=== PATIENT | male | born 1945 | race Caucasian/White ===

== ENCOUNTER 2024-03-25 20:34 | Inpatient (IN) | payer MEDICARE, OTHER ==
[~2024-03-25] VITALS: Ht 177.8 cm; Wt 77.1 kg
[2024-03-25 21:54] LABS: BASOPHILS # (AUTO) 0.1 K/uL (0.0-0.2); BASOPHILS % (AUTO) 1.1 % (0.0-2.0); EOSINOPHILS # (AUTO) 0.4 K/uL (0.0-0.7); EOSINOPHILS % (AUTO) 3.8 % (0.0-6.0); HEMATOCRIT 33 % (39-51); HEMOGLOBIN 11.1 g/dL (13.5-17.5); LYMPHOCYTES # (AUTO) 2.8 K/uL (0.8-4.8); LYMPHOCYTES % (AUTO) 30.1 % (20.0-44.0); MEAN CORPUSCULAR HEMOGLOBIN 31 PG (26.0-33.0); MEAN CORPUSCULAR HGB CONC 34 g/dl (31.0-36.0); MEAN CORPUSCULAR VOLUME 91 fL (80-96); MONOCYTES # (AUTO) 0.6 K/uL (0.1-1.30); MONOCYTES % (AUTO) 6.4 % (2.0-12.0); NEUTROPHILS # (AUTO) 5.5 K/uL (1.8-8.9); NEUTROPHILS % (AUTO) 58.6 % (43.0-81.0); RED CELL DISTRIBUTION WIDTH 15.4 % (11.5-15.0); WHITE BLOOD COUNT (AUTO) 9.3 K/uL (4.3-11.0)
[2024-03-25 22:03] LABS: CARBON DIOXIDE 31 mmol/L (21-32); CHLORIDE 105 mmol/L (98-107); CREATININE 1.4 mg/dL (0.6-1.3); GLUCOSE 112 mg/dL (74-106); POTASSIUM 3.6 mmol/L (3.5-5.1); SODIUM SERUM 141 mmol/L (136-145); UREA NITROGEN, BLOOD 28 mg/dL (7-18)
[2024-03-25 22:14] LABS: PLATELET COUNT (AUTO) 241 K/uL (150-450)
[2024-03-25 22:17] LABS: ALANINE AMINOTRANSFERASE 25 U/L (12-78); ALBUMIN 2.9 g/dL (3.4-5.0); ALCOHOL, BLOOD < 3 mg/dL (0-10); ALKALINE PHOSPHATASE 66 U/L (46-116); ASPARTATE AMINOTRANSFERASE 21 U/L (15-37); BILIRUBIN,DIRECT 0.1 mg/dL (0.0-0.2); BILIRUBIN,TOTAL 0.2 mg/dL (0.2-1.0); TOTAL PROTEIN, SERUM 6.1 g/dL (6.4-8.2)
[2024-03-25 22:21] LABS: SALICYLATE 0.8 mg/dL (2.8-20.0)
[2024-03-25 22:22] LABS: ACETAMINOPHEN <10 ug/ml (10-30)
[2024-03-25 22:45] LABS: APPEARANCE,URINE CLEAR (CLEAR); BILIRUBIN,URINE NEGATIVE (NEGATIVE); BLOOD, URINE NEGATIVE Ery/uL (NEGATIVE); COLOR,URINE YELLOW (YELLOW); KETONES,URINE NEGATIVE (NEGATIVE); LEUKOCYTE ESTERASE ,URINE NEGATIVE (NEGATIVE); NITRITE, URINE NEGATIVE (NEGATIVE); PROTEIN,URINE NEGATIVE (NEGATIVE); UGLUCOSE NEGATIVE (NEGATIVE)
[2024-03-25 22:56] LABS: AMPHETAMINE, URINE NEGATIVE (NEGATIVE); BARBITURATE, URINE NEGATIVE (NEGATIVE); BENZODIAZEPINE, URINE NEGATIVE (NEGATIVE); CANNABINOID, URINE NEGATIVE (NEGATIVE); COCCAINE, URINE NEGATIVE (NEGATIVE); OPIATE, URINE NEGATIVE (NEGATIVE); PHENCYCLIDINE SCREEN,URINE NEGATIVE (NEGATIVE)
[2024-03-25 23:04] LABS: ADD URINE CULTURE NO; BACTERIA,URINE Few /HPF (None Seen); RBC,URINE 0-2 /HPF (0-2); SQUAMOUS EPITHELIAL CELL,UR Few /HPF (None Seen); WBC,URINE 0-2 /HPF (0-3)
[2024-03-26] MEDS ORDERED: VALP250S22 PO (08:15)
[2024-03-26] MEDS ORDERED: ATOR80TA PO (08:15)
[2024-03-26] MEDS ORDERED: NAPR-1009 PO (08:15)
[2024-03-26] MEDS ORDERED: FURO40TA5 PO (08:15)
[2024-03-26] MEDS ORDERED: BREO ELLIPTA IH (08:15)
[2024-03-26] MEDS ORDERED: ASPI-1420 PO (08:15)
[2024-03-26] MEDS ORDERED: TAMS-12 PO (08:15)
[2024-03-26] MEDS ORDERED: QUET25TA PO ×2 (08:15)
[2024-03-26] MEDS ORDERED: OMEP20CA15 PO (08:15)
[2024-03-26] MEDS ORDERED: BISA5TAB10 PO (08:15)
[2024-03-26] MEDS ORDERED: FINA5TAB11 PO (08:15)
[2024-03-26] MEDS ORDERED: CHLO1CAP32 PO (08:15)
[2024-03-26] MEDS ORDERED: ISOS30TA86 PO (08:15)
[2024-03-26] MEDS ORDERED: ERGO500040 PO (08:15)
[2024-03-26] MEDS ORDERED: MECL-159 PO (08:15)
[2024-03-26] MEDS ORDERED: LINA72CA PO (08:15)
[2024-03-26] MEDS ORDERED: MEMA5TAB42 PO (08:15)
[2024-03-26] MEDS ORDERED: RANO500T6 PO (08:15)
[2024-03-26] MEDS ORDERED: DOCU100C36 PO (08:15)
[2024-03-26 10:35] VITALS: BP 164/84; TEMP 98.6; O2SAT 99
[2024-03-26] MEDS ORDERED: MAG HYDROX/AL HYDROX/SIMETH 30 ML UDC PO PRN (11:00)
[2024-03-26] MEDS ORDERED: MAGNESIUM HYDROXIDE 30 ML UDC PO PRN (11:00)
[2024-03-26] MEDS: BLOOD SUGAR DIAGNOSTIC 1 EACH STRIP IN ONE (11:01)
[2024-03-26] MEDS ORDERED: BISACODYL (5 MG) 5 MG TABLET.DR PO PRN (15:30)
[2024-03-26] MEDS ORDERED: MECLIZINE HCL 25 MG TABLET PO PRN (15:30)
[2024-03-26] MEDS ORDERED: CLIDINIUM BR/CHLORDIAZEPOXIDE 1 CAP PO PRN (15:30)
[2024-03-26 16:00] VITALS: BP 161/96; TEMP 98.6; O2SAT 99
[2024-03-26] MEDS: RANOLAZINE 500 MG TAB.ER.12H PO SCH (16:42)
[2024-03-26] MEDS: OXCARBAZEPINE 150 MG TABLET PO SCH (16:42)
[2024-03-26] MEDS: MEMANTINE HCL 5 MG TABLET PO SCH (16:42)
[2024-03-26] MEDS: VALPROIC ACID 250 MG/5 ML UDC PO SCH (16:46)
[2024-03-26] MEDS: ATORVASTATIN 40 MG TABLET PO SCH (21:15)
[2024-03-26] MEDS: DOCUSATE SODIUM 100 MG CAPSULE PO SCH (21:15)
[2024-03-26] MEDS: TAMSULOSIN 0.4 MG CAP.SR.24H PO SCH (21:15)
[2024-03-26 22:17] VITALS: BP 150/91; TEMP 98.4; O2SAT 98
[2024-03-27] MEDS ORDERED: Medication Not On Formulary EA (Linaclotide (Linzess) 72 MCG) PO SCH (07:30)
[2024-03-27 08:00] VITALS: BP 147/73; TEMP 98.4; O2SAT 96
[2024-03-27 08:27] LABS: CREATININE 1.2 mg/dL (0.6-1.3)
[2024-03-27 08:30] LABS: ALBUMIN 3.4 g/dL (3.4-5.0); BILIRUBIN,TOTAL 0.4 mg/dL (0.2-1.0); CALCIUM, SERUM 9.1 mg/dL (8.5-10.1); CREATININE 1.2 mg/dL (0.6-1.3); POTASSIUM 3.9 mmol/L (3.5-5.1); TOTAL PROTEIN, SERUM 6.8 g/dL (6.4-8.2)
[2024-03-27 08:57] LABS: THYROID STIMULATING HORMONE 1.06 uIU/mL (0.358-3.74)
[2024-03-27] MEDS: FLUTICASONE/VILANTEROL 1 EACH BLST.W.DEV IH SCH (08:58)
[2024-03-27] MEDS: ISOSORBIDE MONONITRATE (30MG) 30 MG TAB.SR.24H PO SCH (09:03)
[2024-03-27] MEDS: FINASTERIDE (5 MG) 5 MG TABLET PO SCH (09:03)
[2024-03-27] MEDS: PANTOPRAZOLE 40 MG TABLET.DR PO SCH (09:03)
[2024-03-27] MEDS: ASPIRIN EC 81 MG TABLET.DR PO SCH (09:03)
[2024-03-27 15:09] VITALS: BP 133/82; TEMP 98.1; O2SAT 95
[2024-03-27 20:39] VITALS: BP 152/98; TEMP 98.1; O2SAT 96
[2024-03-27] MEDS: ZOLPIDEM TARTRATE 5 MG TABLET PO PRN (22:40)
[2024-03-28 08:00] VITALS: BP 121/70; TEMP 97.9; O2SAT 97
[2024-03-28] MEDS: OXCARBAZEPINE 150 MG TABLET PO SCH (15:05)
[2024-03-28 16:00] VITALS: BP 139/72; TEMP 97.7; O2SAT 97
[2024-03-28] MEDS: FUROSEMIDE 40 MG TABLET PO ONE (19:48)
[2024-03-28 22:23] VITALS: BP 153/68; TEMP 98; O2SAT 99
[2024-03-29 08:00] VITALS: BP 157/84; TEMP 98.1; O2SAT 98
[2024-03-29 16:00] VITALS: BP 132/72; TEMP 98.7; O2SAT 98
[2024-03-29] MEDS: QUETIAPINE FUMARATE 25 MG TABLET PO PRN (21:58)
[2024-03-29 22:51] VITALS: BP 150/80; TEMP 98.4; O2SAT 97
[2024-03-30 08:00] VITALS: BP 124/70; TEMP 98.6; O2SAT 99
[2024-03-30] MEDS: OLANZAPINE 10 MG VIAL IM STA (11:24)
[2024-03-30 16:00] VITALS: BP 145/100; TEMP 97.7; O2SAT 100
[2024-03-30 20:00] VITALS: BP 150/90; TEMP 97.7; O2SAT 97
[2024-03-30] MEDS: QUETIAPINE FUMARATE 25 MG TABLET PO SCH (21:22)
[2024-03-31 08:00] VITALS: BP 168/90; TEMP 98.8; O2SAT 99
[2024-03-31 16:00] VITALS: BP 144/93; TEMP 98; O2SAT 97
[2024-03-31 20:27] VITALS: BP 154/82; TEMP 98.4; O2SAT 99
[2024-04-01] MEDS: ACETAMINOPHEN 325 MG TABLET PO PRN (07:48)
[2024-04-01 08:00] VITALS: BP 120/57; TEMP 101.3; O2SAT 84
[2024-04-01 09:25] VITALS: TEMP 99.4
[2024-04-01 09:32] VITALS: BP 120/57
[2024-04-01] MEDS ORDERED: ACET-868 PO (10:57)
[2024-04-01] MEDS ORDERED: PANT40TA2 PO (10:57)
[2024-04-01] MEDS ORDERED: MAG30ORA PO (10:57)
[2024-04-01] MEDS ORDERED: FLUT1BLS IH (10:57)
[2024-04-01] MEDS ORDERED: MAGN400O6 PO (10:57)
== END 2024-04-01 10:20 | disposition short-term general hospital (02) | DRG 885 ==
LOC: ER 20:44 → GPS 03-26 09:07
PROVIDERS: ADMIT Psychiatry & Neurology Psychiatry; ATTEND Student in an Organized Health Care Education/Training Program
DX: F39 Unspecified mood [affective] disorder (principal); N17.0 Acute kidney failure with tubular necrosis; E44.0 Moderate protein-calorie malnutrition; G93.49 Other encephalopathy; F03.92 Unspecified dementia, unspecified severity, with psychotic disturbance; F03.918 Unspecified dementia, unspecified severity, with other behavioral disturbance; F03.93 Unspecified dementia, unspecified severity, with mood disturbance; I13.0 Hypertensive heart and chronic kidney disease with heart failure and stage 1 through stage 4 chronic kidney disease, or unspecified chronic kidney disease; F29 Unspecified psychosis not due to a substance or known physiological condition; D64.9 Anemia, unspecified; E78.5 Hyperlipidemia, unspecified; I50.9 Heart failure, unspecified; J44.9 Chronic obstructive pulmonary disease, unspecified; K21.9 Gastro-esophageal reflux disease without esophagitis; Z86.73 Personal history of transient ischemic attack (TIA), and cerebral infarction without residual deficits; F17.210 Nicotine dependence, cigarettes, uncomplicated; M19.90 Unspecified osteoarthritis, unspecified site; N40.0 Benign prostatic hyperplasia without lower urinary tract symptoms; Z20.822 Contact with and (suspected) exposure to COVID-19; F03.90 Unspecified dementia, unspecified severity, without behavioral disturbance, psychotic disturbance, mood disturbance, and anxiety; Z68.24 Body mass index [BMI] 24.0-24.9, adult; N18.9 Chronic kidney disease, unspecified
CPT/HCPCS: 36415; 71045-TC; 80048-TC; 80053-TC; 80061-TC; 80076-TC; 81001; 82565-TC; 84443-TC; 85025-TC; 93970-TC; G0480; J3490

== ENCOUNTER 2024-04-01 10:11 | Inpatient (IN) | payer MEDICARE, OTHER ==
[~2024-04-01] VITALS: Ht 177.8 cm; Wt 75.4 kg
[~2024-04-01 10:11] MED LIST: ASPI-1420 PO; ATOR80TA PO; BISA5TAB10 PO; BREO ELLIPTA IH; CHLO1CAP32 PO; DOCU100C36 PO; ERGO500040 PO; FINA5TAB11 PO; FURO40TA5 PO; ISOS30TA86 PO; LINA72CA PO; MECL-159 PO; MEMA5TAB42 PO; NAPR-1009 PO; OMEP20CA15 PO; QUET25TA PO; RANO500T6 PO; TAMS-12 PO; VALP250S22 PO
[2024-04-01 10:30] VITALS: BP 140/67; TEMP 98; O2SAT 100
[2024-04-01] MEDS ORDERED: ACET-868 PO (10:57)
[2024-04-01] MEDS ORDERED: MAGN400O6 PO (10:57)
[2024-04-01] MEDS ORDERED: MAG30ORA PO (10:57)
[2024-04-01] MEDS ORDERED: FLUT1BLS IH (10:57)
[2024-04-01] MEDS ORDERED: PANT40TA2 PO (10:57)
[2024-04-01] MEDS ORDERED: ONDANSETRON HCL/PF 4 MG/2 ML VIAL IVP PRN (11:30)
[2024-04-01] MEDS: IV NS 0.9% 1,000 ML IV PRN (12:48)
[2024-04-01 13:00] VITALS: BP 138/78; TEMP 99; O2SAT 100
[2024-04-01] MEDS ORDERED: CLIDINIUM BR/CHLORDIAZEPOXIDE 1 CAP PO PRN (13:00)
[2024-04-01] MEDS: ACETAMINOPHEN 325 MG TABLET PO PRN (14:34)
[2024-04-01 14:47] LABS: CALCIUM, SERUM 8.1 mg/dL (8.5-10.1); CREATININE 1.2 mg/dL (0.6-1.3); POTASSIUM 3.4 mmol/L (3.5-5.1)
[2024-04-01 14:58] LABS: BASOPHILS % (AUTO) 0.1 % (0.0-2.0); HEMATOCRIT 33 % (39-51); HEMOGLOBIN 10.9 g/dL (13.5-17.5); LYMPHOCYTES # (AUTO) 1.4 K/uL (0.8-4.8); LYMPHOCYTES % (AUTO) 6.4 % (20.0-44.0); MEAN CORPUSCULAR HEMOGLOBIN 30 PG (26.0-33.0); MEAN CORPUSCULAR HGB CONC 33 g/dl (31.0-36.0); MEAN CORPUSCULAR VOLUME 90 fL (80-96); MONOCYTES # (AUTO) 1.6 K/uL (0.1-1.30); MONOCYTES % (AUTO) 7.5 % (2.0-12.0); NEUTROPHILS # (AUTO) 18.6 K/uL (1.8-8.9); PLATELET COUNT (AUTO) 289 K/uL (150-450); RED BLOOD CELL COUNT(AUTO) 3.66 MIL/uL (4.5-6.0); RED CELL DISTRIBUTION WIDTH 15.8 % (11.5-15.0); WHITE BLOOD COUNT (AUTO) 21.6 K/uL (4.3-11.0)
[2024-04-01 15:59] LABS: BAND % (MANUAL) 3 % (0.0-5.0); EOSINOPHILS % (MANUAL) 0 % (0-4); MONOCYTES % (MANUAL) 4 % (0-11.0); NEUTROPHILS % (MANUAL) 83 (42-76)
[2024-04-01 16:00] LABS: BASOPHILS % (MANUAL) 0 % (0.0-2.0)
[2024-04-01 16:01] LABS: LYMPHOCYTES % (MANUAL) 10 % (16-48); PLATELET ESTIMATE ADEQUATE
[2024-04-01 16:21] LABS: APPEARANCE,URINE CLEAR (CLEAR); BILIRUBIN,URINE NEGATIVE (NEGATIVE); BLOOD, URINE NEGATIVE Ery/uL (NEGATIVE); COLOR,URINE YELLOW (YELLOW); KETONES,URINE TRACE mg/dL (NEGATIVE); LEUKOCYTE ESTERASE ,URINE NEGATIVE (NEGATIVE); NITRITE, URINE NEGATIVE (NEGATIVE); PH,URINE 6.5 (5.0-8.0); PROTEIN,URINE 1+ mg/dl (NEGATIVE); UGLUCOSE NEGATIVE (NEGATIVE)
[2024-04-01 17:00] VITALS: BP 100/62; TEMP 98.9; O2SAT 100
[2024-04-01 17:12] LABS: ADD URINE CULTURE NO; BACTERIA,URINE Rare /HPF (None Seen); RBC,URINE 0-2 /HPF (0-2); SQUAMOUS EPITHELIAL CELL,UR Rare /HPF (None Seen); WBC,URINE 0-2 /HPF (0-3)
[2024-04-01] MEDS: CEFEPIME 2 GM in IV D5W 100 ML IV SCH (17:36)
[2024-04-01] MEDS: RANOLAZINE 500 MG TAB.ER.12H PO SCH (17:36)
[2024-04-01] MEDS: ENOXAPARIN SODIUM 40 MG/0.4 ML DISP.SYRIN SQ SCH (17:37)
[2024-04-01] MEDS ORDERED: POTASSIUM CHLORIDE 20 MEQ TAB.PRT.SR PO SCH (18:30)
[2024-04-01] MEDS: POTASSIUM CL. PREMIX PERIPHER. 50 ML IV SCH (18:54)
[2024-04-01 20:01] VITALS: O2SAT 99
[2024-04-01] MEDS: ALBUTEROL FS 2.5 MG/3 ML VIAL.NEB NEB SCH (20:01)
[2024-04-01 20:16] VITALS: O2SAT 97
[2024-04-01 21:00] VITALS: BP 141/85; TEMP 101.7; O2SAT 97
[2024-04-01] MEDS: DOCUSATE SODIUM 100 MG CAPSULE PO SCH (21:10)
[2024-04-01] MEDS: TAMSULOSIN 0.4 MG CAP.SR.24H PO SCH (21:10)
[2024-04-01] MEDS: ATORVASTATIN 40 MG TABLET PO SCH (21:10)
[2024-04-02] VITALS (14 sets, daily range): BP systolic 132–158; BP diastolic 62–92; TEMP 97.5–99.9; O2SAT 92–100
[2024-04-02 07:18] LABS: BASOPHILS # (AUTO) 0.1 K/uL (0.0-0.2); BASOPHILS % (AUTO) 0.2 % (0.0-2.0); EOSINOPHILS % (AUTO) 0.1 % (0.0-6.0); HEMATOCRIT 38 % (39-51); HEMOGLOBIN 12.1 g/dL (13.5-17.5); LYMPHOCYTES # (AUTO) 1.6 K/uL (0.8-4.8); LYMPHOCYTES % (AUTO) 6.2 % (20.0-44.0); MEAN CORPUSCULAR HEMOGLOBIN 30 PG (26.0-33.0); MEAN CORPUSCULAR HGB CONC 32 g/dl (31.0-36.0); MEAN CORPUSCULAR VOLUME 93 fL (80-96); MONOCYTES # (AUTO) 1.7 K/uL (0.1-1.30); MONOCYTES % (AUTO) 6.5 % (2.0-12.0); NEUTROPHILS # (AUTO) 22.3 K/uL (1.8-8.9); PLATELET COUNT (AUTO) 267 K/uL (150-450); RED BLOOD CELL COUNT(AUTO) 4.05 MIL/uL (4.5-6.0); RED CELL DISTRIBUTION WIDTH 16.3 % (11.5-15.0); WHITE BLOOD COUNT (AUTO) 25.6 K/uL (4.3-11.0)
[2024-04-02] MEDS ORDERED: Medication Not On Formulary EA (Linaclotide (Linzess) 72 MCG) PO SCH (07:30)
[2024-04-02 07:59] LABS: CALCIUM, SERUM 8.2 mg/dL (8.5-10.1); CREATININE 1.2 mg/dL (0.6-1.3); PHOSPHORUS 2.3 mg/dL (2.5-4.9); POTASSIUM 3.9 mmol/L (3.5-5.1)
[2024-04-02] MEDS: BUDESONIDE RESPULE INH 0.5 MG/2 ML AMPUL.NEB NEB SCH (08:32)
[2024-04-02] MEDS: ISOSORBIDE MONONITRATE (30MG) 30 MG TAB.SR.24H PO SCH (09:00)
[2024-04-02] MEDS ORDERED: MAG HYDROX/AL HYDROX/SIMETH 30 ML UDC PO PRN (09:00)
[2024-04-02] MEDS: PANTOPRAZOLE 40 MG TABLET.DR PO SCH (09:00)
[2024-04-02] MEDS: ASPIRIN EC 81 MG TABLET.DR PO SCH (09:00)
[2024-04-02] MEDS: FINASTERIDE (5 MG) 5 MG TABLET PO SCH (09:00)
[2024-04-02] MEDS: OLANZAPINE 10 MG VIAL IM ONE (10:00)
[2024-04-02] MEDS: K PHOS NEUTRAL 250 MG TABLET PO ONE (16:00)
[2024-04-02] MEDS: VANCOMYCIN 1 GM in IV D5W 250ml IV ONE ×2 (16:24→17:00)
[2024-04-02] MEDS ORDERED: QUETIAPINE FUMARATE 25 MG TABLET PO PRN (17:00)
[2024-04-03] VITALS (12 sets, daily range): BP systolic 126–158; BP diastolic 55–85; TEMP 97.7–100.2; O2SAT 94–99
[2024-04-03] MEDS: VANCOMYCIN 750 MG in IV D5W 250 ML IV SCH (05:33)
[2024-04-03 07:56] LABS: BASOPHILS % (AUTO) 0.1 % (0.0-2.0); EOSINOPHILS # (AUTO) 0.1 K/uL (0.0-0.7); EOSINOPHILS % (AUTO) 0.3 % (0.0-6.0); HEMATOCRIT 32 % (39-51); HEMOGLOBIN 10.7 g/dL (13.5-17.5); LYMPHOCYTES # (AUTO) 1.3 K/uL (0.8-4.8); MEAN CORPUSCULAR HEMOGLOBIN 30 PG (26.0-33.0); MEAN CORPUSCULAR HGB CONC 33 g/dl (31.0-36.0); MEAN CORPUSCULAR VOLUME 89 fL (80-96); MONOCYTES # (AUTO) 1.4 K/uL (0.1-1.30); MONOCYTES % (AUTO) 6.7 % (2.0-12.0); NEUTROPHILS # (AUTO) 18.6 K/uL (1.8-8.9); NEUTROPHILS % (AUTO) 86.9 % (43.0-81.0); PLATELET COUNT (AUTO) 290 K/uL (150-450); RED BLOOD CELL COUNT(AUTO) 3.61 MIL/uL (4.5-6.0); RED CELL DISTRIBUTION WIDTH 15.8 % (11.5-15.0); WHITE BLOOD COUNT (AUTO) 21.4 K/uL (4.3-11.0)
[2024-04-03 08:26] LABS: CALCIUM, SERUM 7.9 mg/dL (8.5-10.1); MAGNESIUM 1.9 mg/dL (1.8-2.4); POTASSIUM 3.1 mmol/L (3.5-5.1)
[2024-04-03] MEDS: POTASSIUM CL. PREMIX PERIPHER. 50 ML IV SCH (09:16)
[2024-04-03 13:34] LABS: HIV-1 p24 ANTIGEN NON REACTIVE (NONREACTIVE); HIV-1/2 ANTIBODY NON REACTIVE (NONREACTIVE)
[2024-04-03] MEDS: K PHOS NEUTRAL 250 MG TABLET PO ONE (15:50)
[2024-04-03] MEDS: ACETAMINOPHEN 650 MG/SUPP.RECT RC PRN (21:07)
[2024-04-03] MEDS: ADENOSINE 6 MG/2 ML VIAL IVP ONE (21:08)
[2024-04-03] MEDS: Magnesium 1GM/D5W 100ML PREMIX 100 ML IV SCH (21:16)
[2024-04-03] MEDS ORDERED: AMIODARONE 150 MG/3 ML VIAL IV ONE ×2 (21:30→21:39)
[2024-04-03] MEDS: AMIODARONE 150 MG in IV D5W 100 ML IV ONE (21:56)
[2024-04-03 22:02] LABS: CREATININE 1.2 mg/dL (0.6-1.3); MAGNESIUM 2.3 mg/dL (1.8-2.4); POTASSIUM 3.6 mmol/L (3.5-5.1)
[2024-04-04] VITALS (11 sets, daily range): BP systolic 120–156; BP diastolic 68–78; TEMP 97.5–99.1; O2SAT 92–100
[2024-04-04] MEDS: AMIODARONE 450 MG in IV D5W 241 ML IV PRN (01:46)
[2024-04-04 05:21] LABS: BASOPHILS % (AUTO) 0.2 % (0.0-2.0); EOSINOPHILS # (AUTO) 0.1 K/uL (0.0-0.7); EOSINOPHILS % (AUTO) 0.5 % (0.0-6.0); HEMATOCRIT 34 % (39-51); HEMOGLOBIN 11.4 g/dL (13.5-17.5); LYMPHOCYTES # (AUTO) 2.1 K/uL (0.8-4.8); LYMPHOCYTES % (AUTO) 11.4 % (20.0-44.0); MEAN CORPUSCULAR HEMOGLOBIN 30 PG (26.0-33.0); MEAN CORPUSCULAR HGB CONC 33 g/dl (31.0-36.0); MEAN CORPUSCULAR VOLUME 90 fL (80-96); MONOCYTES # (AUTO) 1.5 K/uL (0.1-1.30); MONOCYTES % (AUTO) 8.1 % (2.0-12.0); NEUTROPHILS # (AUTO) 14.8 K/uL (1.8-8.9); NEUTROPHILS % (AUTO) 79.8 % (43.0-81.0); PLATELET COUNT (AUTO) 330 K/uL (150-450); RED BLOOD CELL COUNT(AUTO) 3.79 MIL/uL (4.5-6.0); RED CELL DISTRIBUTION WIDTH 15.7 % (11.5-15.0); WHITE BLOOD COUNT (AUTO) 18.5 K/uL (4.3-11.0)
[2024-04-04 05:50] LABS: CALCIUM, SERUM 8.2 mg/dL (8.5-10.1); CREATININE 1.1 mg/dL (0.6-1.3); MAGNESIUM 2.3 mg/dL (1.8-2.4); POTASSIUM 3.4 mmol/L (3.5-5.1)
[2024-04-04 06:26] LABS: LYMPHOCYTES % (MANUAL) 14 % (16-48); MONOCYTES % (MANUAL) 9 % (0-11.0); NEUTROPHILS % (MANUAL) 77 (42-76); PLATELET ESTIMATE ADEQUATE
[2024-04-04] MEDS ORDERED: Z GUARD REMEDY 4 OZ OINT TP PRN (08:30)
[2024-04-04] MEDS ORDERED: IPRATROPIUM NEB FS 0.5 MG/2.5 ML AMPUL.NEB NEB PRN (09:30)
[2024-04-04] MEDS: Z GUARD REMEDY 4 OZ OINT TP SCH (09:46)
[2024-04-04] MEDS: POTASSIUM CL. PREMIX PERIPHER. 50 ML IV SCH (09:48)
[2024-04-04] MEDS: APIXABAN 5 MG TABLET PO SCH (11:11)
[2024-04-04] MEDS: POTASSIUM CHLORIDE 20 MEQ TAB.PRT.SR PO SCH (11:11)
[2024-04-05] VITALS (10 sets, daily range): BP systolic 106–151; BP diastolic 60–91; TEMP 97.6–98.6; O2SAT 93–99
[2024-04-05 08:36] LABS: CALCIUM, SERUM 8.3 mg/dL (8.5-10.1); CREATININE 1.1 mg/dL (0.6-1.3); POTASSIUM 3.5 mmol/L (3.5-5.1)
[2024-04-05] MEDS: AMIODARONE HCL 200 MG TABLET PO SCH (16:29)
[2024-04-05] MEDS: MEROPENEM 1 G in IV NS 0.9% 100 ML IV SCH (20:52)
[2024-04-06] VITALS (7 sets, daily range): BP systolic 127–138; BP diastolic 73–93; TEMP 97.9–99; O2SAT 94–99
[2024-04-06 07:45] LABS: BASOPHILS # (AUTO) 0.1 K/uL (0.0-0.2); BASOPHILS % (AUTO) 0.4 % (0.0-2.0); EOSINOPHILS # (AUTO) 0.2 K/uL (0.0-0.7); HEMATOCRIT 30 % (39-51); HEMOGLOBIN 10.1 g/dL (13.5-17.5); LYMPHOCYTES # (AUTO) 1.3 K/uL (0.8-4.8); LYMPHOCYTES % (AUTO) 8.4 % (20.0-44.0); MEAN CORPUSCULAR HEMOGLOBIN 30 PG (26.0-33.0); MEAN CORPUSCULAR HGB CONC 34 g/dl (31.0-36.0); MEAN CORPUSCULAR VOLUME 88 fL (80-96); MONOCYTES # (AUTO) 1.6 K/uL (0.1-1.30); MONOCYTES % (AUTO) 10.8 % (2.0-12.0); NEUTROPHILS # (AUTO) 11.9 K/uL (1.8-8.9); NEUTROPHILS % (AUTO) 79.4 % (43.0-81.0); PLATELET COUNT (AUTO) 378 K/uL (150-450); RED BLOOD CELL COUNT(AUTO) 3.41 MIL/uL (4.5-6.0); RED CELL DISTRIBUTION WIDTH 15.9 % (11.5-15.0)
[2024-04-06 07:55] LABS: CALCIUM, SERUM 8.4 mg/dL (8.5-10.1); CREATININE 0.9 mg/dL (0.6-1.3); POTASSIUM 3.3 mmol/L (3.5-5.1)
[2024-04-06] MEDS: POTASSIUM CHLORIDE 20 MEQ TAB.PRT.SR PO SCH (11:16)
[2024-04-06 11:17] LABS: EOSINOPHILS % (MANUAL) 2 % (0-4); LYMPHOCYTES % (MANUAL) 9 % (16-48); MONOCYTES % (MANUAL) 3 % (0-11.0); MYELOCYTES % 1 % (0-0); NEUTROPHILS % (MANUAL) 85 (42-76); PLATELET ESTIMATE ADEQUATE
[2024-04-06] MEDS ORDERED: AMIO200T7 PO (11:24)
[2024-04-06] MEDS ORDERED: MERO1PIG IV (11:24)
[2024-04-06] MEDS ORDERED: OXCA150T13 PO (11:24)
[2024-04-06] MEDS ORDERED: APIX5TAB PO (11:24)
[2024-04-06] MEDS ORDERED: OXCARBAZEPINE 150 MG TABLET PO SCH (17:00)
== END 2024-04-06 15:48 | DRG 193 ==
LOC: UNDOADMIN 10:11 → MEDSG1 10:11 → TELE1 10:19 → TELE-TD 04-03 21:29 → TELE1 04-05 09:47 → MEDSG1 04-06 12:52
PROVIDERS: ADMIT Nurse Practitioner Acute Care; ATTEND Nurse Practitioner Acute Care
DX: J15.9 Unspecified bacterial pneumonia (principal); G93.41 Metabolic encephalopathy; E44.0 Moderate protein-calorie malnutrition; J44.0 Chronic obstructive pulmonary disease with (acute) lower respiratory infection; F03.93 Unspecified dementia, unspecified severity, with mood disturbance; I48.92 Unspecified atrial flutter; F03.918 Unspecified dementia, unspecified severity, with other behavioral disturbance; I13.0 Hypertensive heart and chronic kidney disease with heart failure and stage 1 through stage 4 chronic kidney disease, or unspecified chronic kidney disease; I47.10 Supraventricular tachycardia, unspecified; F03.92 Unspecified dementia, unspecified severity, with psychotic disturbance; N17.9 Acute kidney failure, unspecified; K21.9 Gastro-esophageal reflux disease without esophagitis; I50.9 Heart failure, unspecified; N40.0 Benign prostatic hyperplasia without lower urinary tract symptoms; M19.90 Unspecified osteoarthritis, unspecified site; Z86.73 Personal history of transient ischemic attack (TIA), and cerebral infarction without residual deficits; E78.5 Hyperlipidemia, unspecified; D64.9 Anemia, unspecified; E88.09 Other disorders of plasma-protein metabolism, not elsewhere classified; I48.91 Unspecified atrial fibrillation; Z68.23 Body mass index [BMI] 23.0-23.9, adult; I25.10 Atherosclerotic heart disease of native coronary artery without angina pectoris; F17.210 Nicotine dependence, cigarettes, uncomplicated; N18.9 Chronic kidney disease, unspecified; F39 Unspecified mood [affective] disorder; F29 Unspecified psychosis not due to a substance or known physiological condition; D72.829 Elevated white blood cell count, unspecified
CPT/HCPCS: 36415; 71045-TC; 80048-TC; 80061-TC; 80202-TC; 81001; 83735-TC; 84100-TC; 84484-TC; 85025-TC; 86803; 87040-TC; 87081-TC; 87806; 92526; 92611-TC; 93307-TC; 94760-TC; 94762-TC; 94799-TC; 97110-TC; 97116-TC; 97530-TC; A4223; G0378; J0153; J0282; J0692; J1650; J2185; J3370; J3371; J3475; J3480; J3490; J7030; J7050; J7060